=== PATIENT | female | born 1995 | race Caucasian/White ===

== ENCOUNTER 2019-12-05 05:35 | Inpatient (IN) ==
[~2019-12-05 05:35] MED LIST: *HR* FentaNYL (PF) 100 MCG/2 ML VIAL IVP PRN; Famotidine 20 MG/2 ML VIAL IVP PRN; Lidocaine 1% 20 ML MDV INFILT PRN; Metoclopramide 10 MG/2 ML VIAL IVP PRN; Naloxone 0.4 MG/ML INJ IVP PRN; Ondansetron 4 MG/2 ML VIAL IVP PRN
[2019-12-05 06:02] LABS: Basophils % 0.2 %; Hemoglobin 10.1 g/dL (11.5-15.4); Immature Granulocytes % 0.7 % (0-4)
[2019-12-05 06:04] LABS: Amphetamine Screen,Urine Negative ng/mL (Cutoff=1000); Barbiturate Screen,Urine Negative ng/mL (Cutoff=200); Benzodiazepines Screen,Urine Negative ng/mL (Cutoff=200); Cannabinoid Screen,Urine Negative ng/mL (Cutoff = 50); Cocaine Screen,Urine Negative ng/mL (Cutoff= 300); Eosinophils # 0.1 K/mcL (0.0-0.6); Eosinophils % 0.8 %; Hematocrit 31.2 % (35.3-44.9); Immature Platelets 14.5 % (1.1-6.1); Lymphocytes # 2.1 K/mcL (0.6-4.6); Lymphocytes % 21.8 %; Mean Corpuscular HGB Conc 32.4 g/dL (31.6-35.5); Mean Corpuscular Hemoglobin 28.9 pg (28.0-33.3); Mean Corpuscular Volume 89.1 fL (83.0-100.0); Mean Platelet Volume 13.1 fL (9.4-12.4); Monocytes # 1.2 K/mcL (0.0-1.3); Monocytes % 12.2 %; Opiate Screen,Urine Negative ng/mL (Cutoff=300); Phencyclidine Screen,Urine Negative ng/mL (Cutoff=25); Platelet Count 246 K/mcL (140-400); Red Cell Distribution Width 13.9 % (11.5-14.5); Segmented Neutrophils % 64.3 %; White Blood Count 9.4 K/mcL (4.3-11.1)
[2019-12-05 06:22] LABS: Glucose 84 mg/dL (70-105)
[2019-12-05] MEDS: Ringers Solution, Lactated 1,000 ML IVC SCH ×2 (06:27→08:53)
[2019-12-05] MEDS: Oxytocin 20 units/ LR 1000 mL 20 UNIT/1,000 ML BAG IVC SCH ×2 (06:28→14:35)
[2019-12-05 07:35] LABS: Alanine Aminotransferase 10 Units/L (7-52); Aspartate Amino Transferase 19 Units/L (13-39); BUN/Creatinine Ratio 19 (6-26); Blood Urea Nitrogen 11 mg/dL (6-20); Lactate Dehydrogenase 201 Units/L (140-271); Uric Acid 3.9 mg/dL (2.3-7.6); eGFR For African Americans > 60 (> 60); eGFR For Non-African Americans > 60 (> 60)
[2019-12-05] MEDS ORDERED: *HR* Labetalol 20 MG/4 ML SYRINGE IVP ONE (07:35)
[2019-12-05 07:38] LABS: Creatinine,Urine 70 mg/dL; Protein/Creatinine Ratio,Urine 1.39 mg/mg (0.00-0.20)
[2019-12-05] MEDS ORDERED: Ropivacaine/PF 0.2% 20 ML VIAL ONE (07:53)
[2019-12-05] MEDS ORDERED: *HR* FentaNYL (PF) 100 MCG/2 ML VIAL ONE (07:53)
[2019-12-05] MEDS ORDERED: Epidural Premix (fent/bupiv) 110 ML EP ONE (08:15)
[2019-12-05] MEDS ORDERED: *HR* FentaNYL (PF) 100 MCG/2 ML VIAL EP ONE (08:25)
[2019-12-05] MEDS ORDERED: Ondansetron 4 MG/2 ML VIAL IVP PRN (08:25)
[2019-12-05] MEDS ORDERED: EPHEDrine 50 MG/ML VIAL IVP PRN (08:25)
[2019-12-05] MEDS ORDERED: Naloxone 0.4 MG/ML INJ IVP PRN (08:25)
[2019-12-05] MEDS ORDERED: Ropivacaine/PF 0.2% 20 ML VIAL EP ONE (08:25)
[2019-12-05] MEDS ORDERED: Epidural Premix (fent/bupiv) 110 ML EP SCH (08:30)
[2019-12-05 09:14] LABS: Bilirubin,Urine Negative (Negative); Blood,Urine Small (Negative); Clarity,Urine Cloudy (Clear); Color,Urine Yellow (Yellow); Glucose,Urine (UA) Normal (Normal); Ketones,Urine Negative (Negative); Leukocyte Esterase,Urine Trace (Negative); Nitrite,Urine Negative (Negative); PH,Urine 6.5 pH Units (5.0-8.0); Protein,Urine 100 mg/dL (Neg-Trace); Specific Gravity,Urine 1.023 (1.010-1.025); Urobilinogen,Urine Normal (Normal)
[2019-12-05 09:16] LABS: Bacteria,Urine None Seen per hpf (None-Few); Squamous Epithelial Cell,Urine Many per lpf (None-Few)
[2019-12-05] MEDS ORDERED: Morphine Sulfate 2 MG/ML SYRINGE IVP ONE (11:17)
[2019-12-05] MEDS ORDERED: Lidocaine 1% 20 ML MDV ONE (12:54)
[2019-12-05] MEDS ORDERED: Ibuprofen 600 MG TABLET PO PRN (16:06)
[2019-12-05] MEDS ORDERED: Oxytocin 20 units/ LR 1000 mL 20 UNIT/1,000 ML BAG IVC ONE (16:06)
[2019-12-05] MEDS ORDERED: Oxytocin 20 units/ LR 1000 mL 20 UNIT/1,000 ML BAG IVC SCH (16:06)
[2019-12-05] MEDS ORDERED: Measles/Mumps/Rubella Vacc 0.5 ML VIAL SQ PRN (16:06)
[2019-12-05] MEDS ORDERED: Rho Immune Globulin 1,500 UNIT SYRINGE IM PRN (16:06)
[2019-12-05] MEDS ORDERED: Lanolin 7 G OINT...G. TP PRN (16:06)
[2019-12-05] MEDS ORDERED: Acetaminophen 325 MG TABLET PO PRN (16:06)
[2019-12-05] MEDS ORDERED: Benzocaine/Menthol 56 GM AEROSOL SPRAY TP PRN (16:06)
[2019-12-05] MEDS ORDERED: Nitrofurantoin (BID) 100 MG CAPSULE PO SCH (17:00)
[2019-12-05] MEDS: Nitrofurantoin (BID) 100 MG CAPSULE PO SCH (17:54)
[2019-12-06 05:53] LABS: Basophils % 0.2 %; Eosinophils # 0.1 K/mcL (0.0-0.6); Eosinophils % 0.4 %; Hematocrit 27.8 % (35.3-44.9); Hemoglobin 8.9 g/dL (11.5-15.4); Immature Granulocytes % 0.8 % (0-4); Lymphocytes # 2.3 K/mcL (0.6-4.6); Mean Corpuscular Hemoglobin 28.9 pg (28.0-33.3); Mean Corpuscular Volume 90.3 fL (83.0-100.0); Mean Platelet Volume 12.7 fL (9.4-12.4); Monocytes # 1.3 K/mcL (0.0-1.3); Monocytes % 9.4 %; Neutrophils # 9.9 K/mcL (1.6-8.9); Platelet Count 210 K/mcL (140-400); Red Blood Count 3.08 M/mcL (3.82-4.97); Segmented Neutrophils % 72.2 %; White Blood Count 13.7 K/mcL (4.3-11.1)
[2019-12-06] MEDS ORDERED: Nitrofurantoin (BID) 100 MG CAPSULE PO SCH (08:00)
[2019-12-06] MEDS: Nitrofurantoin (BID) 100 MG CAPSULE PO SCH ×2 (08:07→16:08)
[2019-12-06] MEDS ORDERED: Prenatal Vit/FA 1 EACH TABLET PO SCH (09:00)
[2019-12-06 14:49] VITALS: BP 136/87
== END 2019-12-06 19:10 | disposition home or self-care (01) | DRG 560 ==
LOC: 1NENULAB → 1NENUOBS 15:40
PROVIDERS: ADMIT Obstetrics & Gynecology; ATTEND Obstetrics & Gynecology